=== PATIENT | female | born 1985 | race Two or more races ===

== ENCOUNTER 2018-10-10 17:49 | Emergency (ER) | payer SELFPAY ==
[~2018-10-10] VITALS: Ht 157.5 cm; Wt 71.7 kg
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
--- NOTE | 2018-10-10 18:59 | NUR ---
urine collected and sent to lab.
[2018-10-10] MEDS ORDERED: KETOROLAC TROMETHAMINE INJ 60 MG/2 ML VIAL IM ONE (19:00)
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
[2018-10-10] MEDS ORDERED: KETOROLAC TROMETHAMINE INJ 30 MG/ML VIAL ONE (19:34)
--- NOTE | 2018-10-10 20:46 | NUR ---
PT NOT IN ROOM. PT ELOPED.
[2018-10-10 21:13] VITALS: BP 113/18
== END 2018-10-10 21:14 | disposition home or self-care (01) ==
LOC: ER 17:49
DX: S16.1XXA Strain of muscle, fascia and tendon at neck level, initial encounter (principal); S39.012A Strain of muscle, fascia and tendon of lower back, initial encounter; V43.53XA Car driver injured in collision with pick-up truck in traffic accident, initial encounter; Y93.89 Activity, other specified; Y92.413 State road as the place of occurrence of the external cause; Y99.8 Other external cause status
CPT/HCPCS: 72040; 72110; 84703; 96372; 99284; J1885